=== PATIENT | female | born 1990 | race African-American/Black ===

== ENCOUNTER 2016-07-31 23:25 | Emergency (ER) | payer MEDICAID ==
[~2016-07-31 23:25] MED LIST: Sodium Chloride 0.9% 1,000 ML BAG ONE; Sodium Chloride 0.9% 100 ML BAG ONE
[2016-08-01] MEDS ORDERED: Ondansetron HCl/PF 4 MG/2 ML Vial ONE (00:06)
[2016-08-01 00:12] LABS: #Basophils 0.1 thou/uL (0.0-0.2); #Eosinphils 0.2 thou/uL (0.0-0.7); #Lymphocytes 2.4 thou/uL (1.20-3.40); #Monocytes 0.5 thou/uL (0.11-0.59); #Neutrophils 4.1 thou/uL (1.40-6.50); %Basophils 1.1 % (0.0-1.0); %Eosinophils 2.8 % (0.0-10.0); %Lymphocytes 33.5 % (21.0-51.0); %Monocytes 6.7 % (0.0-10.0); Hemoglobin 13.1 g/dL (12.0-16.0); Mean Corpuscular HGB CONC 31.8 g/dL (32.0-36.0); Mean Corpuscular Hemoglobin 24.6 pg (27.0-31.0); Mean Corpuscular Volume 77.2 fl (81.0-99.0); Mean Platelet Volume 9.4 fL (7.4-10.4); Platelet Count 255 thou/uL (130-400); Red Blood Cell (RBC) Count 5.32 mill/uL (4.20-5.40); White Blood Cell (WBC) Count 7.3 thou/uL (4.8-10.8)
[2016-08-01 00:18] LABS: Manual Diff?? NO
[2016-08-01 00:27] LABS: ALT (SGPT) 12 U/L (0-55); AST (SGOT) 13 U/L (5-34); Albumin 3.9 g/dL (3.5-5.0); Alkaline Phosphatase 56 U/L (40-150); Anion Gap 13 mmol/L (10-20); BUN (Urea Nitrogen) 10 mg/dL (7.0-18.7); Bilirubin, Total 0.3 mg/dL (0.2-1.2); Calc. Creatinine Clearance 0 mL/min (70-130); Calcium 8.9 mg/dL (7.8-10.44); Carbon Dioxide 23 mmol/L (22-29); Chloride 106 mmol/L (98-107); Estimated GFR-MDRD Greater than 90; Glucose 97 mg/dL (70-105); Lipase 17 U/L (8-78); Potassium 3.8 mmol/L (3.5-5.1); Sodium 138 mmol/L (136-145)
[2016-08-01 00:43] LABS: Globulin 2.6 g/dL (2.4-3.5); Protein, Total 6.5 g/dL (6.0-8.3)
[2016-08-01] MEDS ORDERED: Promethazine HCl 25 MG/ML VIAL ONE (00:50)
[2016-08-01 02:05] LABS: Bilirubin Negative (Negative); Blood, Urine Negative (Negative); Clarity Clear (Clear); Glucose, Urine (Dipstick) Negative (Negative); Leukocyte Negative (Negative); Nitrite Negative (Negative); Protein, Urine (Dipstick) Negative (Neg-Trace); Urobilinogen 0.2 mg/dL (0.2-1.0); pH, Urine 5.5 (5.0-9.0)
[2016-08-01 02:06] LABS: Pregnancy Test - Urine (BHCG) NEGATIVE (NEGATIVE); Pregu Control Bar Appear? YES (CONTROL BAR); Specific Gravity 1.032 (1.002-1.036); Specific Gravity, Urine 1.032 (1.002-1.036)
[2016-08-01 02:12] LABS: Amphetamine Not Detected (NotDetected); Barbiturates Screen Not Detected (NotDetected); Benzodiazepine Screen Not Detected (NotDetected); Cocaine Metabolite Screen Not Detected (NotDetected); Medtox Control Line Valid? VALID (VALID); Methadone Not Detected (NotDetected); Methamphetamine Not Detected (NotDetected); Opiate Screen Not Detected (NotDetected); Oxycodone Screen Not Detected (NotDetected); Phencyclidine (PCP) Not Detected (NotDetected); THC/Cannabinoid Screen Detected (NotDetected); Tricyclic Screen Not Detected (NotDetected)
== END 2016-08-01 03:10 | disposition home or self-care (01) ==
LOC: MADERS 23:25
DX: A08.4 Viral intestinal infection, unspecified (principal); E86.0 Dehydration; F17.210 Nicotine dependence, cigarettes, uncomplicated
CPT/HCPCS: 80053; 80306; 81003; 81025; 83690; 85025; 96361; 96365; 96375; J2405; J2550; J7050

== ENCOUNTER 2016-10-20 08:47 | Emergency (ER) | payer MEDICAID ==
[2016-10-20] MEDS ORDERED: Ondansetron ODT 4 MG TAB ONE (09:15)
[2016-10-20 10:02] LABS: Amphetamine Not Detected (NotDetected); Barbiturates Screen Not Detected (NotDetected); Benzodiazepine Screen Not Detected (NotDetected); Cocaine Metabolite Screen Not Detected (NotDetected); Medtox Control Line Valid? VALID (VALID); Methadone Not Detected (NotDetected); Methamphetamine Not Detected (NotDetected); Opiate Screen Not Detected (NotDetected); Oxycodone Screen Not Detected (NotDetected); Phencyclidine (PCP) Not Detected (NotDetected); THC/Cannabinoid Screen Detected (NotDetected); Tricyclic Screen Not Detected (NotDetected)
[2016-10-20 10:03] LABS: Clarity Hazy (Clear); Glucose, Urine (Dipstick) Negative (Negative); Leukocyte Trace (Negative); Nitrite Negative (Negative); Pregnancy Test - Urine (BHCG) Negative (Negative); Pregu Control Background? CLEAR/WHITE (CLR/WHITE); Pregu Control Bar Appear? YES (CONTROL BAR); Protein, Urine (Dipstick) Negative (Neg-Trace); Specific Gravity 1.025 (1.002-1.036); Specific Gravity, Urine 1.025 (1.005-1.030)
[2016-10-20 10:04] LABS: Bacteria/HPF 3+ HPF (None Seen); Bilirubin Negative (Negative); Blood, Urine Negative (Negative); RBC/HPF 0-3 HPF (0-3); Renal Epithelial 0-3 HPF (0-3); Transitional Epithelial 0-3 HPF (0-3); Urobilinogen 0.2 mg/dL (0.2-1.0); WBC/HPF 21-50 HPF (0-3); Yeast-All Forms 2+ HPF (None Seen)
[2016-10-20] MEDS ORDERED: cefTRIAXone\\ROCEPHIN 1 GM VIAL ONE (10:09)
--- NOTE | 2016-10-20 10:12 | RAD ---
3 VIEWS LEFT ANKLE: Date: 10/20/16 COMPARISON: None. HISTORY: Left ankle pain after trauma. FINDINGS: Three views of the left ankle show no evidence of acute fracture or dislocation. No degenerative madelin nges are seen. No soft tissue swelling is present. IMPRESSION: Unremarkable exam. POS: [facility]
[2016-10-20] MEDS ORDERED: Lidocaine 1% 20 ML MDV ONE (10:31)
== END 2016-10-20 10:20 | disposition home or self-care (01) ==
LOC: MADERS 08:47
DX: S93.402A Sprain of unspecified ligament of left ankle, initial encounter (principal); N39.0 Urinary tract infection, site not specified; F17.210 Nicotine dependence, cigarettes, uncomplicated; W18.30XA Fall on same level, unspecified, initial encounter
CPT/HCPCS: 80306; 81003; 81015; 81025; 87086; 96372; J0696; J2001; Q0162

== ENCOUNTER 2017-05-15 12:13 | Emergency (ER) | payer MEDICAID ==
[2017-05-15] MEDS ORDERED: Amoxicillin/Potassium Clav 875 MG TAB ONE (12:37)
[2017-05-15] MEDS ORDERED: traMADol HCl 50 MG TAB ONE (12:37)
== END 2017-05-15 12:40 | disposition home or self-care (01) ==
LOC: MADERS 12:13
DX: K02.9 Dental caries, unspecified (principal)
CPT/HCPCS: 99282

== ENCOUNTER 2017-05-24 08:58 | Emergency (ER) | payer MEDICAID ==
[~2017-05-24 08:58] MED LIST changes: -Sodium Chloride 0.9% 100 ML BAG ONE
[2017-05-24] MEDS ORDERED: Metoclopramide HCl 10 MG/2 ML VIAL ONE (10:09)
[2017-05-24] MEDS ORDERED: Ondansetron HCl/PF 4 MG/2 ML Vial ONE ×2 (10:09→13:05)
[2017-05-24 10:13] LABS: Bilirubin Negative (Negative); Blood, Urine Large (Negative); Clarity Slightly Cloudy (Clear); Glucose, Urine (Dipstick) Negative (Negative); Leukocyte Negative (Negative); Nitrite Negative (Negative); Protein, Urine (Dipstick) Trace mg/dL (Neg-Trace); Urobilinogen 0.2 mg/dL (0.2-1.0)
[2017-05-24 10:21] LABS: WBC/HPF 0-3 HPF (0-3)
[2017-05-24 10:22] LABS: Bacteria/HPF Rare-Few HPF (None Seen)
[2017-05-24 10:23] LABS: #Basophils 0.1 thou/uL (0.0-0.2); #Lymphocytes 2.1 thou/uL (1.20-3.40); #Monocytes 0.5 thou/uL (0.11-0.59); #Neutrophils 4.7 thou/uL (1.40-6.50); %Basophils 1.8 % (0.0-1.0); %Eosinophils 0.1 % (0.0-10.0); %Lymphocytes 27.9 % (21.0-51.0); %Monocytes 6.4 % (0.0-10.0); %Neutrophils 63.8 % (42.0-75.0); Anisocytosis SLIGHT = 6-15 cells (100X) (0-5/hpf); Hemoglobin 12.8 g/dL (12.0-16.0); MDiff Complete? YES; Mean Corpuscular HGB CONC 31.9 g/dL (32.0-36.0); Mean Corpuscular Hemoglobin 24.8 pg (27.0-31.0); Mean Corpuscular Volume 77.7 fl (81.0-99.0); Mean Platelet Volume 9.3 fL (7.4-10.4); Microcytosis SLIGHT = 6-15 cells (100X) (0-5/hpf); PLT Morphology Comment Appears Adequate; Platelet Count 311 thou/uL (130-400); RBC Distribution Width 15.7 % (11.5-14.5); Red Blood Cell (RBC) Count 5.17 mill/uL (4.20-5.40); White Blood Cell (WBC) Count 7.4 thou/uL (4.8-10.8)
[2017-05-24 10:29] LABS: ALT (SGPT) 66 U/L (8-55); AST (SGOT) 41 U/L (5-34); Albumin 4.3 g/dL (3.5-5.0); Alkaline Phosphatase 62 U/L (40-150); Anion Gap 15 mmol/L (10-20); BUN (Urea Nitrogen) 8 mg/dL (7.0-18.7); Bilirubin, Total 0.5 mg/dL (0.2-1.2); Calc. Creatinine Clearance 0 mL/min (70-130); Calcium 9.4 mg/dL (7.8-10.44); Carbon Dioxide 26 mmol/L (22-29); Chloride 106 mmol/L (98-107); Estimated GFR-MDRD Greater than 90; Globulin 3.9 g/dL (2.4-3.5); Glucose 102 mg/dL (70-105); Lipase 8 U/L (8-78); Potassium 3.5 mmol/L (3.5-5.1); Protein, Total 8.2 g/dL (6.0-8.3); Sodium 143 mmol/L (136-145)
[2017-05-24 10:53] LABS: Acetaminophen Less than 6.0 mcg/mL (10.0-30.0); Alcohol 95 mg/dL (Less than 10); Salicylate Less than 8.0 mg/dL (15.0-30.0)
[2017-05-24 11:10] LABS: Amphetamine Not Detected (NotDetected); Barbiturates Screen Not Detected (NotDetected); Benzodiazepine Screen Not Detected (NotDetected); Cocaine Metabolite Screen Not Detected (NotDetected); Medtox Control Line Valid? VALID (VALID); Methadone Not Detected (NotDetected); Methamphetamine Detected (NotDetected); Opiate Screen Not Detected (NotDetected); Oxycodone Screen Not Detected (NotDetected); Phencyclidine (PCP) Not Detected (NotDetected); THC/Cannabinoid Screen Detected (NotDetected); Tricyclic Screen Not Detected (NotDetected)
== END 2017-05-24 14:45 | disposition home or self-care (01) ==
LOC: MADERS 08:58
DX: R11.2 Nausea with vomiting, unspecified (principal)
CPT/HCPCS: 80053; 80306; 80307; 81001; 82150; 83690; 85025; 87086; 96361; 96374; 96375; 96376; J2405; J2765; J7050

== ENCOUNTER 2017-09-29 07:49 | Emergency (ER) | payer MEDICAID ==
--- NOTE | 2017-09-29 08:31 | RAD ---
3 VIEWS RIGHT FOOT: Date: 09/29/17 COMPARISON: None. HISTORY: Right foot injury with pain. FINDINGS: Three views of the right foot show no evidence of acute fracture or dislocation. No soft tissue swell ing is seen. No degenerative changes are present. IMPRESSION: No evidence of acute osseous abnormality. POS: [facility]
== END 2017-09-29 08:47 | disposition home or self-care (01) ==
LOC: MADERS 07:49
DX: M79.671 Pain in right foot (principal); R10.13 Epigastric pain; K02.9 Dental caries, unspecified; R59.0 Localized enlarged lymph nodes; X50.1XXA Overexertion from prolonged static or awkward postures, initial encounter

== ENCOUNTER 2017-10-13 22:54 | Emergency (ER) | payer MEDICAID ==
--- NOTE | 2017-10-13 23:53 | RAD ---
CHEST TWO VIEWS: HISTORY: Chest pain. Shortness of breath. COMPARISON: Chest radiograph from 2013. FINDINGS: The lungs are clear. No pneumothorax or effusion. The cardiac silhouette and mediastinal contour ar e within normal limits. IMPRESSION: No acute intracranial abnormality. POS: [facility]
[2017-10-14] MEDS ORDERED: Ketorolac Tromethamine 30 MG/ML VIAL ONE (00:02)
[2017-10-14 00:04] LABS: ALT (SGPT) 11 U/L (8-55); AST (SGOT) 15 U/L (5-34); Albumin 3.8 g/dL (3.5-5.0); Alkaline Phosphatase 51 U/L (40-150); Anion Gap 15 mmol/L (10-20); BUN (Urea Nitrogen) 11 mg/dL (7.0-18.7); Bilirubin, Total 0.5 mg/dL (0.2-1.2); Calc. Creatinine Clearance 0 mL/min (70-130); Calcium 8.5 mg/dL (7.8-10.44); Carbon Dioxide 22 mmol/L (22-29); Chloride 107 mmol/L (98-107); Estimated GFR-MDRD Greater than 90; Globulin 3.3 g/dL (2.4-3.5); Glucose 102 mg/dL (70-105); Potassium 3.9 mmol/L (3.5-5.1); Protein, Total 7.1 g/dL (6.0-8.3); Sodium 140 mmol/L (136-145)
[2017-10-14 00:11] LABS: CKMB 1.2 ng/mL (0-6.6); Troponin I Less than 0.010 ng/mL (< 0.028)
[2017-10-14 00:20] LABS: Mean Corpuscular HGB CONC 31.9 g/dL (32.0-36.0); Mean Corpuscular Hemoglobin 22.5 pg (27.0-31.0); Mean Corpuscular Volume 70.7 fL (78.0-98.0); Mean Platelet Volume 8.2 fL (7.4-10.4); Platelet Count 263 thou/uL (130-400); RBC Distribution Width 15.9 % (11.5-14.5); Red Blood Cell (RBC) Count 4.89 mill/uL (4.20-5.40); White Blood Cell (WBC) Count 6.2 thou/uL (4.8-10.8)
[2017-10-14 00:22] LABS: MDiff Complete? YES; Neutrophil 46 % (42-75)
[2017-10-14 00:23] LABS: Anisocytosis MARKED = >30 cells (100X) (0-5/hpf); Band 7 % (5-11); Eosinophils 2 % (0-10); Hypochromia SLIGHT = 6-15 cells (100X) (0-5/hpf); Lymphocytes 42 % (21-51); Microcytosis MARKED = >30 cells (100X) (0-5/hpf); Monocytes 3 % (0-10)
== END 2017-10-14 02:41 | disposition home or self-care (01) ==
LOC: MADERS 22:54
DX: R07.89 Other chest pain (principal)
CPT/HCPCS: 36415; 71046; 80053; 82553; 83880; 84484; 85025; 93005; 94760; 96374; J1885

== ENCOUNTER 2018-02-12 21:45 | Emergency (ER) | payer MEDICAID ==
[2018-02-12] MEDS ORDERED: Meclizine HCl 25 MG TAB ONE (22:31)
[2018-02-12] MEDS ORDERED: Ondansetron ODT 4 MG TAB ONE (22:31)
== END 2018-02-12 23:11 | disposition home or self-care (01) ==
LOC: MADERS 21:45
DX: R42 Dizziness and giddiness (principal); F17.210 Nicotine dependence, cigarettes, uncomplicated
CPT/HCPCS: 99283; Q0162

== ENCOUNTER 2018-02-25 19:16 | Emergency (ER) | payer MEDICAID ==
[2018-02-25] MEDS ORDERED: HYDROcodone/Acetaminophen 10/325 mg Tablet ONE (19:40)
== END 2018-02-25 19:48 | disposition home or self-care (01) ==
LOC: MADERS 19:16
DX: M54.5 Low back pain (principal); E66.9 Obesity, unspecified; F17.210 Nicotine dependence, cigarettes, uncomplicated; W17.89XA Other fall from one level to another, initial encounter
CPT/HCPCS: 99283

== ENCOUNTER 2018-05-01 15:32 | Emergency (ER) | payer SELFPAY | END 2018-05-01 16:06 | disposition home or self-care (01) | LOC: MADERS 15:32 | DX: J02.9 Acute pharyngitis, unspecified (principal); F17.210 Nicotine dependence, cigarettes, uncomplicated | CPT/HCPCS: 99281 ==

== ENCOUNTER 2020-04-28 17:48 | Emergency (ER) | payer SELFPAY ==
[2020-04-28 19:14] LABS: SARS-CoV-2 NAA Rapid Test Not Detected (NotDetected)
== END 2020-04-28 19:27 | disposition home or self-care (01) ==
LOC: MADERS 17:48
DX: R19.7 Diarrhea, unspecified (principal); R63.0 Anorexia; R06.02 Shortness of breath; R21 Rash and other nonspecific skin eruption; R43.8 Other disturbances of smell and taste; Z20.822 Contact with and (suspected) exposure to COVID-19; F17.210 Nicotine dependence, cigarettes, uncomplicated
CPT/HCPCS: 0240U; 99284

== ENCOUNTER 2021-10-21 04:40 | Emergency (ER) | payer SELFPAY ==
[2021-10-21] MEDS ORDERED: Tetracaine 0.5% PF 4 ML BOT ONE (04:50)
== END 2021-10-21 05:03 | disposition home or self-care (01) ==
LOC: MADERS 04:40
DX: T16.2XXA Foreign body in left ear, initial encounter (principal); F17.210 Nicotine dependence, cigarettes, uncomplicated; E66.9 Obesity, unspecified; Z68.45 Body mass index [BMI] 70 or greater, adult
CPT/HCPCS: 99282

== ENCOUNTER 2023-05-25 10:44 | Emergency (ER) | payer SELFPAY ==
[2023-05-25 11:37] LABS: #Basophils 0.1 thou/uL (0.0-0.2); #Eosinphils 0.1 thou/uL (0.0-0.7); #Lymphocytes 1.9 thou/uL (1.20-3.40); #Monocytes 0.3 thou/uL (0.11-0.59); #Neutrophils 2.7 thou/uL (1.40-6.50); %Eosinophils 1.6 % (0.0-10.0); %Lymphocytes 37.5 % (21.0-51.0); %Monocytes 5.9 % (0.0-10.0); %Neutrophils 52.9 % (42.0-75.0); Hemoglobin 10.8 g/dL (12.0-16.0); White Blood Cell (WBC) Count 5.2 10x3/uL (4.8-10.8)
[2023-05-25 11:50] LABS: ALT (SGPT) 14 U/L (8-55); AST (SGOT) 14 U/L (5-34); Albumin 3.8 g/dL (3.5-5.0); Alkaline Phosphatase 62 U/L (40-110); Anion Gap 14 mmol/L (10-20); BUN (Urea Nitrogen) 8 mg/dL (7.0-18.7); Bilirubin, Total 0.5 mg/dL (0.2-1.2); Calc. Creatinine Clearance 0 mL/min (70-130); Carbon Dioxide 22 mmol/L (22-29); Chloride 108 mmol/L (98-107); Estimated GFR 102; Globulin 2.9 g/dL (2.4-3.5); Glucose 97 mg/dL (70-105); Magnesium 1.8 mg/dL (1.6-2.6); Potassium 3.6 mmol/L (3.5-5.1); Protein, Total 6.7 g/dL (6.0-8.3); Sodium 140 mmol/L (136-145)
[2023-05-25 11:51] LABS: Troponin I Less than 0.010 ng/mL (< 0.028)
[2023-05-25 11:59] LABS: Hematocrit 35.4 % (36.0-47.0); Mean Corpuscular HGB CONC 30.7 g/dL (32.0-36.0); Mean Corpuscular Hemoglobin 22.6 pg (27.0-31.0); Mean Corpuscular Volume 73.6 fl (78.0-98.0); Mean Platelet Volume 9.6 fL (7.4-10.4); Platelet Count 297 10x3/uL (130-400); RBC Distribution Width 17.2 % (11.5-14.5)
[2023-05-25 12:00] LABS: Anisocytosis SLIGHT = 6-15 cells (100X) (0-5/hpf); Hypochromia SLIGHT = 6-15 cells (100X) (0-5/hpf); Microcytosis SLIGHT = 6-15 cells (100X) (0-5/hpf)
[2023-05-25 12:03] LABS: Platelet Adequacy Comment Appears Adequate
== END 2023-05-25 12:14 | disposition home or self-care (01) ==
LOC: MADERS 10:44
DX: I49.3 Ventricular premature depolarization (principal); F17.210 Nicotine dependence, cigarettes, uncomplicated
CPT/HCPCS: 36415; 80053; 83735; 84484; 85025; 93005; 94760